=== PATIENT | female | born 1960 | race Caucasian/White ===

== ENCOUNTER 2016-10-24 11:18 | Observation (INO) | payer OTHER ==
[~2016-10-24] VITALS: Ht 170.2 cm; Wt 76.2 kg
--- NOTE | ~2016-10-24 | ESTC ---
Cardiac Perfusion Imaging Demographics Patient Name JAZZMINE Rosales Gender Female Patient Number [id number] Race Visit Number [id number] Ethnicity Corporate ID Room Number G6324 Accession Number [id number] Height 67 inches Date of 1960 Weight 167 pounds Interpreting Neal Landin Date of study 10/25/2016 Physician MD Howard Guevara Supervising /MLP Neal Landin NM Technologist Melissa Villegas MD Ordering Physician Valeria Crow MD Stress Sinl Ann electrical assembly technician [facility] Stress ECG Reading [facility] Urvashi Nurse Ric Santillan MD The procedure was explained in detail to the patient. Risks, complications and alternative treatments were reviewed. Written consent was obtained. Medications Reviewed with Patient prior to Procedure. Procedure Procedure Type: Nuclear Stress Test:Pharmacological, Lexiscan, Cardiolite Stress Test Procedure Start time: 10/25/2016 10:00 Indications: Chest pain. Conclusions Summary Perfusion Images: The overall quality of the study is good. Left ventricular cavity is noted to be normal on the stress and rest studies. There is no evidence of abnormal lung activity. The right ventricle is not visualized and cannot be assessed. Stress SPECT images demonstrate homogenous tracer distribution throughout the myocardium. Gated SPECT imaging reveals normal myocardial thickening and wall motion. The left ventricular ejection fraction was calculated to be 72%. Impression ECG portion of stress test is clinically nondiagnostic for ischemia due to baseline EKG abnormalities (which got worse with regadenoson). Myocardial perfusion imaging is normal. Overall left ventricular systolic function was normal without regional wall motion abnormalities. There are no previous studies for comparison . Dr. Shaw and Dr. Zuniga were notified of the findings. Stress Protocols Resting ECG NSR, ST depressions in inferior and leads V4,V5,6. Pre-stress physical exam: NSR, S1, s2 rrr Predicted HR: 164 bpm ECG Findings Accentuation of ST depressions in inferior leads and V3-6 during lexiscan infusion. Arrhythmias No rhythm abnormality. Symptoms Shortness of breath. Stress Interpretation Appropriate hemodynamic response to Lexiscan. Accentuation of resting ST depressions with Lexiscan. ECG portion is nondiagnostic for inducible ischemia by diagnostic criteria. Await nuclear images. Imaging Results Applied corrections - Motion correction applied High risk findings Summed scores - Summed stress score: 9 - Summed rest score: 6 - Summed difference score: 3 Stress ejection Ejection fraction:72 % EDV :80 ml ESV :22 ml Stroke volume :58 ml LV mass :108 gr Imaging Protocols Rest Stress Isotope:Tc99m Sestamibi IV Isotope: Tc99m Sestamibi IV Isotope dose:12.1 mCi Isotope dose:35.4 mCi Date:10/25/2016 08:58 Date:10/25/2016 10:01 Technique: SPECT Technique: Gated Supine SPECT Supine IV remains in place after procedure. Scan Time:45-60 minutes post Scan Time:45-60 minutes post injection injection Procedure Medications - Regadenoson (Lexiscan) 0.4 mg IV over 10-15 sec. . Medical History Admission Data Admission date: 10/24/2016 Admission Time: 11:18 Hospital Status: Inpatient. Signatures dtt: URVASHI PRETTY dtd: 10/25/16 [facility] Physician Self Edit
--- NOTE | ~2016-10-24 | ECHO ---
Transthoracic Echocardiography Report (TTE) Demographics Patient Name CRISELDA DOVER Date of Study 10/24/2016 Patient Number [id number] Visit Number [id number] Date of 1960 Room Number G6324 Gender Female Number Age 56 year(s) Referring CristelaCashion Rosibel Tiny Registration Coordinator Keith Prince RVT Physician RAMIRO Brumfield MD Physician Interpreting Valeria Crow MD Log Roper Physician Supervising Ordering MD/MLP Physician Nurse Stress Lay Ups Assembler Conclusions Contractility Score Summary Normal Left Ventricular contractility was noted. Summary The estimated left ventricular ejection fraction is 60-65%. Diastolic assessment reveals Grade II pseudonormal diastolic function . Mild calcification of the mitral valve. The ascending aorta appears mildly dilated. The maximum diameter measures 3.2 cm. Mild mitral regurgitation by color Doppler. No evidence of mitral valve prolapse Procedure Type of Study TTE procedure:2D Echocardiogram, M-Mode, Doppler , Color Doppler. Procedure Date Date: 10/24/2016 Start: 02:21 PM Study Location: Inpatient Portable Technical Quality: Adequate visualization Indications:Chest pain. Appropriate Use Criteria: 9 Patient Status: Routine HR: 58 bpm BP: 162/84 mmHg M-Mode/2D Measurements LV Diastolic Dimension: 4.37 cm LV Systolic Dimension: 2.88 cm LV Septum Diastolic: 0.94 cm LV PW Diastolic: 0.91 cm AO Root Dimension: 2.8 cm Cardiac Output: 3.97 l/min AV Cusp Separation: 2.3 cm RV Diastolic Dimension: 2.59 cm LVOT: 2 cm LVOT VTI: 21.8 cm RV Base: 2.07 cm LV Stroke volume: 68.45 ml RV Length: 5.86 cm TAPSE: 2.15 cm TDI-S': 13.5 cm/s Doppler Measurements AV Peak Velocity: 1.17 m/s MV Peak E-Wave: 0.7 m/s AV Peak Gradient: 5.48 mmHg MV Peak A-Wave: 0.46 m/s AV Mean Gradient: 3 mmHg MV E/A Ratio: 1.5 LVOT Peak Velocity: 0.9 m/s MV P1/2t: 105 msec PV Peak Velocity: 0.77 m/s E' Septal Velocity: 0.08 m/s PV Peak Gradient: 2.4 mmHg E' Lateral Velocity: 0.1 m/s A' Septal Velocity: 0.13 m/s A' Lateral Velocity: 0.2 m/s Findings Left Ventricle Diastolic assessment reveals normal relaxation. Right Ventricle Normal right ventricle structure and function. Left Atrium Normal left atrial size. Right Atrium IVC measures 1.10 cm with inspiratory collapse. Mitral Valve Mild mitral regurgitation by color Doppler. No evidence of mitral valve prolapse Aortic Valve Normal aortic valve structure and function. Tricuspid Valve Normal tricuspid valve structure and function. Pulmonic Valve Normal pulmonic valve structure and function. Pericardial Effusion No evidence of pericardial effusion. Miscellaneous Visualized portions of the aortic root and ascending aorta appear normal in size. Pleural Effusion No evidence of pleural effusion. Contractility Score LV regional wall motion:(0-Non visualized 1-Normal 2-Hypokinesis 3-Akinesis 4-Dyskinesis 5-Aneurysm) Signature dtt: Tristin Shaw (cardio) dtd: 10/24/16 1421 Physician Self Edit
--- NOTE | ~2016-10-24 | CON ---
PATIENT'S NAME: CRISELDA DOVER [facility] AGE: 56 Y [address] ROOM: [place] [address] LOCATION: GPCU ADMIT DATE: 10/24/2016 Consultation DISCHARGE DATE: FAMILY PHYSICIAN: Enrico Zuniga MD ATTENDING PHYSICIAN: Enrico Zuniga REFERRING PHYSICIAN: Tristin Shaw MD REASON FOR CONSULTATION: Chest pain. HISTORY OF PRESENT ILLNESS: This is a 56-year-old female who has a 3-day history of chest heaviness described as weight on her shoulder and short of breath. She denies previous history of exertional chest pain. She denies history of palpitations, lightheadedness, or dizziness. She has had some intermittent shortness of breath off and on. She also has had intermittent nausea through these past 3 days as well. She has not had any problems with increased peripheral edema. PAST MEDICAL HISTORY: Gastroesophageal reflux disease, hiatal hernia, heartburn, shortness of breath, osteoarthritis of the knees, and mitral valve prolapse. PAST SURGICAL HISTORY: She has not had any surgical history. ALLERGIES: SULFA. HOME MEDICATIONS: 1. Amoxicillin 2000 mg 1 time prior to dental work. 2. Ibuprofen 200 mg every 6 hours as needed. 3. Protonix 40 mg every day. FAMILY HISTORY: Her mother is alive, she has had breast cancer. Father is currently being worked up for some sort of heart problems. She does have siblings, but they are alive and well. REVIEW OF SYSTEMS: GENERAL: She has been a little more fatigued lately. HEENT: Head: No history of headache. Eyes: No blurred vision, but she wears reading glasses. Ears: No problems with hearing. Nose: No epistaxis or rhinorrhea. Mouth: No gingival bleeding. Throat: Denies sore throat, hoarseness, or difficulty swallowing. PULMONARY: Denies cough or hemoptysis. She is complaining of shortness of breath. PATIENT'S NAME: CRISELDA DOVER [facility] AGE: 56 Y [address] ROOM: [id number] [place] [id number] LOCATION: GPCU ADMIT DATE: 10/24/2016 Consultation DISCHARGE DATE: FAMILY PHYSICIAN: Enrico Zuniga MD ATTENDING PHYSICIAN: Zuniga,Enrico A GASTROINTESTINAL: Positive for heartburn and hiatal hernia. There are no problems with nausea, with melena, or hematochezia. GENITOURINARY: Negative for urinary frequency or urgency. MUSCULOSKELETAL: She complains of osteoarthritis of her knees. PHYSICAL EXAMINATION: VITAL SIGNS: She is 5 feet and 7 inches, weighs is 75.9 kg, blood pressure is 162/84, heart rate is 85, and temperature is 98.2. GENERAL: She is alert and oriented. She continues to complain of a heaviness on her shoulders. SKIN: Warm, dry, and pink. HEENT: Pupils equal, round, and react briskly to light. EOMs are intact. NECK: Soft and supple. No lymphadenopathy or thyromegaly. JVD is flat. LUNGS: Lung sounds were clear. CV: Regular with normal S1, S2. ABDOMEN: Soft. Bowel sounds are present. EXTREMITIES: Show no peripheral edema, no clubbing, and no cyanosis. She tells me that she had a fasting lipid profile done with Dr. Zuniga today, those results are not available. She was also told that she has elevated blood sugars, once again we are waiting those labs. ASSESSMENT: Chest pain. We will get a stat EKG and review the EKG, and we will also monitor serial cardiac enzymes. We will also initiate heparin, aspirin, and metoprolol therapy. The assessment and plan, history of present illness, and physical exam are per Dr. Tristin Shaw. YOEL MENDOZA APRN FOR MD FRANKLIN HADLEYP/modl /[id number] d: 10/24/16 2245 t: 11/01/16 1312, CONSULTATION REPORT
--- NOTE | 2016-10-24 12:34 | NUR ---
Pt is 56 y/o female admit for chest pain for . Pt alert and oriented x3. Resides at home with her . Allergy to Sulfa. Red bracelet on. Pt states she's had chest pain constantly for about 3 days. Hx hiatal hernia, gerd,heartburn,OA bilat knees,SOB with activity.
[2016-10-24 13:03] LABS: BASOPHIL % 0.8 %; EOSINOPHIL # 0.1 K/uL (0.0-0.5); EOSINOPHIL % 2.1 %; HEMATOCRIT 38.6 % (33.0-46.0); HEMOGLOBIN 12.4 g/dL (10.0-15.0); IMMATURE GRANULOCYTE % 0.4 %; LYMPHOCYTE # 1.6 K/uL (0.8-4.0); LYMPHOCYTE % 30.5 %; MCH 28.8 pg (27.0-34.0); MCHC 32.1 gm/dL (32.0-36.5); MCV 89.8 fl (83.0-98.0); MONOCYTE # 0.3 K/uL (0.0-1.0); MONOCYTE % 6.1 %; MPV 10.5 fl (9.4-12.4); NEUTROPHIL # (ANC) 3.1 K/uL (1.8-7.8); NEUTROPHIL % 60.1 %; NRBC % 0 /100WBC (0-0.00); PLATELET COUNT 225 K/uL (150-450); WBC 5.1 K/uL (4.0-11.0)
[2016-10-24 13:15] LABS: PROTIME 10.1 SECONDS (9.6-11.1)
[2016-10-24 13:22] LABS: CPK 77 IU/L (21-215)
[2016-10-24] MEDS ORDERED: PROTONIX40 MG PO (14:00)
[2016-10-24] MEDS ORDERED: ADVIL200 MG PO (14:01)
[2016-10-24] MEDS ORDERED: AMOXICILLIN500 MG PO (14:01)
--- NOTE | 2016-10-24 17:16 | NUR ---
Significant Event: PATIENT ARRIVED FROM CLINIC AT 1215 FOR CHEST PRESSURE AND SHORTNESS OF BREATH. PATIENT AMBULATES WITH NO TROUBLE. VITAL SIGNS ARE STABLE. NO SIG. HISTORY. SHE TAKES PROTONIX AND HAS A HERNIA, AND HAD A MITRAL VALVE PROLAPSE IN THE PAST. DENIED ANY PAIN JUST CHEST PRESSURE FEELS LIKE SOMETHING PUSHING ON HER SHOULDERS. Follow up: NPO AT MIDNIGHT FOR PROCEDURE IN THE MORNING. SHONDA SCAN
[2016-10-24 18:51] LABS: CPK 64 IU/L (21-215)
[2016-10-25 01:07] LABS: CPK 65 IU/L (21-215)
[2016-10-25 04:20] LABS: BASOPHIL # 0.1 K/uL (0.0-0.2); BASOPHIL % 0.9 %; EOSINOPHIL # 0.2 K/uL (0.0-0.5); EOSINOPHIL % 3.7 %; HEMATOCRIT 35.4 % (33.0-46.0); HEMOGLOBIN 11.5 g/dL (10.0-15.0); IMMATURE GRANULOCYTE % 0.2 %; LYMPHOCYTE # 2.9 K/uL (0.8-4.0); LYMPHOCYTE % 45.4 %; MCH 29.1 pg (27.0-34.0); MCHC 32.5 gm/dL (32.0-36.5); MCV 89.6 fl (83.0-98.0); MONOCYTE # 0.4 K/uL (0.0-1.0); MONOCYTE % 5.4 %; MPV 10.9 fl (9.4-12.4); NEUTROPHIL # (ANC) 2.9 K/uL (1.8-7.8); NEUTROPHIL % 44.4 %; NRBC % 0 /100WBC (0-0.00); PLATELET COUNT 220 K/uL (150-450); RBC 3.95 M/uL (3.50-5.50); RDW-CV 12.2 % (11.9-14.6); WBC 6.5 K/uL (4.0-11.0)
[2016-10-25 04:35] LABS: ALBUMIN 3.4 gm/dL (3.5-5.0); ANION GAP 13.5 (10.0-19.0); BLOOD UREA NITROGEN 9 mg/dL (6-24); CALCIUM 8.5 mg/dL (8.5-10.5); CHLORIDE 110 mMol/L (96-110); CO2 23 mMol/L (22-32); CREATININE 0.7 mg/dL (0.5-1.1); ESTIMATED GFR (MDRD EQUATION) > 60; MAGNESIUM 2.2 mg/dL (1.3-2.6); PHOSPHORUS 3.2 mg/dL (2.5-4.9); POTASSIUM 3.5 mMol/L (3.7-5.1); SODIUM 143 mMol/L (135-145)
--- NOTE | 2016-10-25 04:46 | NUR ---
Significant Event: Patient A/Ox3. VSS on RA. Up independently to bathroom. No complaints of chest pain this shift. Heparin gtt running at 1100u/hr. Next pttHP at 1030. Patient NPO since midnight. Follow up: Stress test and lexiscan this AM.
[2016-10-25] MEDS ORDERED: BREO ELLIPTA 11 EACH INH (15:12)
[2016-10-25] MEDS ORDERED: INCRUSE ELLI62.5 MCG INH (15:13)
--- NOTE | 2016-10-25 15:39 | NUR ---
dISMISSED TO HOME WITH PARENTS. DENIES QUESTION OR CONCERN OF DISCHARGE. VSS ON RA. RX AND NEW MED INFO SENT WITH PATIENT.
== END 2016-10-25 15:35 | disposition disaster alternative care site (69) ==
LOC: GPCU 11:18 → EDSTATUS 11:30 → GPCU 10-25 15:35
PROVIDERS: Nurse Practitioner Acute Care; ADMIT Family Medicine
DX: R07.89 Other chest pain (principal); I34.1 Nonrheumatic mitral (valve) prolapse; K21.9 Gastro-esophageal reflux disease without esophagitis; R06.09 Other forms of dyspnea; E66.3 Overweight; E78.2 Mixed hyperlipidemia; R73.03 Prediabetes; Z68.27 Body mass index [BMI] 27.0-27.9, adult; Z88.2 Allergy status to sulfonamides; Z79.899 Other long term (current) drug therapy
CPT/HCPCS: A9500; J0280; J1644; J2785; Q9967

== ENCOUNTER → 2016-11-05 | Outpatient (CLI) | payer OTHER ==
[~2016-11-05] MED LIST: ADVIL200 MG PO; AMOXICILLIN500 MG PO; BREO ELLIPTA 11 EACH INH; INCRUSE ELLI62.5 MCG INH; PROTONIX40 MG PO
--- NOTE | ~2016-11-05 | PUL ---
PATIENT'S NAME: CRISELDA DOVER [facility] AGE: 56 Y [address] ROOM: [place] [address] LOCATION: [facility] ADMIT DATE: 11/05/2016 Pulmonary DISCHARGE DATE: FAMILY PHYSICIAN: Enrico Zuniga MD ATTENDING PHYSICIAN: Hardeep English NAME OF PROCEDURE: Pulmonary Function Test DATE OF PROCEDURE: November 05, 2016 TECH: ATripe, CUTLERY GRINDER REASON FOR EXAM: Tracheal stenosis RESULTS: 1. FVC was 4.16 liters which is 110% of predicted and normal, FEV1 was 2.72 liters which is 92% of predicted and normal, and FEV1/FVC was 65% and low. The patient had evidence of flattening of the expiratory and inspiratory curves. After bronchodilator administration FVC decreased to 4.06 liters and FEV1 increased to 2.75 liters which is a 1% increase. FEV1/FVC was 68%. 2. DLCO was 21.2 with an adjusted DLCO of 21.9 which is 93% of predicted and normal. 3. Total lung capacity was 5.69 liters which is 103% of predicted and normal, and residual volume was 1.53 liters which is 75% of predicted and normal. PHYSICIAN INTERPRETATION: The patient has mild airflow limitation without a significant bronchodilator response. Her diffusion capacity is normal. There is no evidence of restrictive lung disease. She has flattening of the expiratory and inspiratory curves, which is suggestive of extrathoracic fixed airway obstruction. Clinical correlation is advised. MD NICK COLE/missy /[id number] dtt: 11/07/16 1204 , BALDOMERO VELAZCO dtd: 11/07/16 1105
== END | disposition disaster alternative care site (69) ==
LOC: GRTH 08:38
DX: J39.8 Other specified diseases of upper respiratory tract (principal); R06.1 Stridor; M48.02 Spinal stenosis, cervical region; R93.8 Abnormal findings on diagnostic imaging of other specified body structures
CPT/HCPCS: Q9967